=== PATIENT | female | born 1955 | race Caucasian/White ===

== ENCOUNTER 2023-08-16 06:09 | Inpatient (IN) | payer MEDICARE, SELFPAY ==
[2023-08-16] VITALS (68 sets, daily range): BP systolic 79–123; BP diastolic 47–70; PULSE 72–93; RESP 14–32; TEMP 36.6–37.6; O2SAT 96–100
--- NOTE | 2023-08-16 07:07 | W.PM.HP.N ---
Date of service: 08/16/23 Time of Service: 07:49 Assessment and Plan Assessment and plan (1) DKA (diabetic ketoacidosis): Status: Acute Assessment and plan: -Patient initially presented to [facility] with a pH of 7, and anion gap of 40, potassium 5.7, glucose 776 -Was given a total of 2 L of IV fluids and placed on insulin drip -Upon arrival to [facility] pH 7.16, potassium 4.4, anion gap 25, glucose 420 -Will continue DKA protocol with IV fluids, insulin, potassium replacement as needed all per protocol (2) Type I diabetes mellitus: Status: Acute Assessment and plan: - Patient usually on insulin pump -Will attempt to replace pump, if unable patient will use subcu insulin until she is 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 Patient initially presented to [facility] after experiencing altered mental status apparently losing consciousness on the toilet. She states that she may have dislodged her insulin pump, but was not completely aware of the situation given that she was on pain medications postoperatively for recent hip replacement. Upon presenting [facility] she was noted as having pH of about 7, an anion gap of 40, creatinine of 1.48, potassium of 5.7 without EKG changes, glucose of 776. Patient also appears to be tachycardic with heart rate in the 110s, she had dry mucous membranes and was given a total 2 L IV fluid. Additionally, she was started on DKA insulin protocol. At around 3 AM this morning, [facility] called overnight physician at [facility] for transfer given that [facility] did not have any ICU beds available. Upon arrival to [facility] pH is 7.16, CO2 25, lactic 3.8, sodium 132, anion gap of 25.2, creatinine of 1.6, glucose of 496 potassium of 4.4. Patient states that she is feeling significantly better, and understands that she will continue be treated for DKA. Review of Systems All systems reviewed & are unremarkable except as noted in HPI and below PFSH All Active Problems (Updated 08/16/23 @ 07:54 by Timmy Deal MD) Type I diabetes mellitus (Acute) DKA (diabetic ketoacidosis) (Acute) Social History Smoking risk assessment performed?: No Exam Narrative Exam Narrative: Well-appearing older female laying in bed in no acute distress, ANO x 4, heart regular rhythm, lungs clear to auscultation bilaterally, abdomen, soft, nontender, nondistended Results Labs 08/16/23 09:02 Time Spent Time spent with Patient: >75 minutes (60 minutes of critical care time managing patient in DKA on insulin drip with open anion gap) Time was spent: preparing to see the patient(eg.review tests), obtaining and/or reviewing separately otained hiistory, ordering medications,tests, procedures, referring, communicating with other health skin care instructor, indepentently interpreting results, counseling the patient and care coordination
[2023-08-16 07:31] LABS: BE (Venous) -20 mmol/L (-2-3); HCO3 (Venous) 9 mmol/L (23-28); O2 Sat (Venous) 72 %; TCO2 (Venous) 9 mmol/L (24-29); pCO2 (Venous) 25 mmHg (41-51); pO2 (Venous) 40 mmHg
[2023-08-16 07:34] LABS: pH (Venous) 7.16 (7.31-7.41)
[2023-08-16 07:43] LABS: Lactate 3.8 mmol/L (0.6-1.4)
[2023-08-16] MEDS: Acetaminophen 325 MG TAB PO ×2 (07:43→21:26)
[2023-08-16] MEDS: POTASSIUM CHLORIDE/0.9% NACL 1,000 ML 200 MEQ IV ×2 (07:45→13:42)
[2023-08-16 07:49] LABS: Anion Gap 25.2 mmol/L (3-11); BUN 35 mg/dL (7-18); CO2 9.8 mmol/L (21.0-32.0); CREATININE 1.6 mg/dL (0.55-1.02); Calcium 8.5 mg/dL (8.5-10.1); Chloride 97 mmol/L (98-107); Estimated GFR 35.13 (mL/min/1.73m2); Glucose 496 mg/dL (74-106); Magnesium 1.8 mg/dL (1.8-2.4); PHOSPHORUS 3.6 mg/dL (2.6-4.7); Potassium 4.4 mmol/L (3.5-5.1); Sodium 132 mmol/L (136-145)
--- NOTE | 2023-08-16 07:55 | INITIAL_ITS ---
Date of service: 08/16/23 Time of Service: 07:55 Care Management Initial Assmt Initial Assessment REASON FOR HOSPITALIZATION:: DKA PREVIOUS FUNCTIONAL STATUS/SOCIAL/FAMILY SUPPORTS:: Gail lives in [place] with her partner Seb Constantino. She has 3 sons. One lives in [place] and the other two reside in [place]. 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 She currently uses a walker as she recently had hip surgery, but is otherwise independent. CURRENT FUNCTIONAL STATUS:: Gail was lying in bed visiting with Seb when CM met with her. She appeared tired and admitted to feeling fatigued, however she was agreeable to conversation. Gail informed CM that she is finally starting to feel a little better. On admission this morning her blood sugar was almost 500. While CM was with Gail, it was rechecked and had come down to 163. She stated that it usually runs in the 120s. ADVANCE DIRECTIVES:: none Has patient been provided with info about the portal/API?: Yes Did the patient sign up for the portal?: No CODE STATUS:: Full Code INSURANCE COVERAGE / FINANCIAL ISSUES:: Medicare [employer] senior supplement CURRENT HOME/COMMUNITY SERVICES/EQUIPMENT:: Gail uses a walker at the moment due to recent hip surgery. At baseline she does not require any ambulatory aides. PRIMARY CARE PHYSICIAN:: Thuy Villagomez POTENTIAL DISCHARGE NEEDS:: Follow up with community providers and plan of care PATIENT/FAMILY EDUCATION NEEDS:: Review of discharge instructions, activity, medications, diet follow up plan, discuss Ask Me Three TRANSPORTATION:: via private vehicle PLAN:: Anticipate Gail will be discharged home with no new services. She will follow up with her PCP and plan of care and transport with a friend. CM will follow and continue to assess for discharge needs. PFSH All Active Problems Status post right hip replacement (Acute) Type I diabetes mellitus (Acute) DKA (diabetic ketoacidosis) (Acute) Social History Smoking risk assessment performed?: No
[2023-08-16] MEDS: INSULIN REGULAR IN 0.9 % NACL 100 UNIT/100 ML BAG 7.6 UNIT IV (08:27)
[2023-08-16] MEDS: Normal Saline Flush 10 ML SYR IVP ×2 (09:04→21:27)
[2023-08-16] MEDS: Enoxaparin 40 MG/0.4 ML SYR SC (09:06)
--- NOTE | 2023-08-16 09:15 | OCONE_ITS ---
Date of service: 08/16/23 Time of Service: 11:25 History of Present Illness History of Present Illness Chief Complaint: Recent R KAROLINA Narrative: Gail is a 68-year-old who underwent an anterior right hip replacement at [facility] on 03 August. She discharged home on same day. She had no acute issues. She was able to ambulate mobilize at home. However, she started not feeling well late last night. She was brought into the [facility] emergency department where she was diagnosed with hyperglycemia and diabetic ketoacidosis. Due to limitations and hospital stay she was transferred [facility] for further management. I was consulted for evaluation of her right hip and management for the recent right hip replacement. She denies any pain about the right hip. She denies numbness or tingling. She is able take a shower yesterday and has no issues with the wound or the dressing. Consults Consult date: 08/16/23 Requesting physician: Stefano Virk Consult Reason Recent R KAROLINA with DKA Assessment and Plan Assessment and plan (1) Status post right hip replacement: Status: Acute Assessment and plan: Gail is a 68-year-old who is status post right hip replacement at [facility]. She is here for diabetic ketoacidosis which seems to be improving. At this point, there is no need for intervention for her right hip. She may ambulate as tolerated on her own with a walker or other assistive device. She is weightbearing as tolerated. There are no positioning restrictions. She should maintain instructions and medications as given to her by Dr. Rodriguez of [facility]. There are no concerns at this time nor other need for interventions or observations about the right hip. Review of Systems All systems reviewed & are unremarkable except as noted in HPI and below PFSH All Active Problems Status post right hip replacement (Acute) Type I diabetes mellitus (Acute) DKA (diabetic ketoacidosis) (Acute) Social History Smoking risk assessment performed?: No Exam Narrative Exam Narrative: Resting in the chair. No acute distress. Alert and orient x 3. Evaluation of the right hip shows a clean dry and intact dressing over the anterior right hip. There is some mild ecchymosis seen about the thigh. The thigh is compressible. No pain with gentle internal and external rotation. Results Last Vital Signs Temp 36.9 C 08/16/23 06:53 Pulse Ox 99 08/16/23 06:53 Labs 08/16/23 09:02 Labs: Laboratory Results - last 24 hr 08/16/23 07:23 VBG pH 7.16 L* VBG pCO2 25 L VBG pO2 40 VBG HCO3 9 L VBG Total CO2 9 L VBG O2 Saturation 72 VBG Base Excess -20 L VBG Lactate 3.8 H* Sodium 132 L Potassium 4.4 Chloride 97 L Carbon Dioxide 9.8 L Anion Gap 25.2 H BUN 35 H Creatinine 1.6 H Est GFR (CKD-EPI 2020) 35.13 Glucose 496 H Calcium 8.5 Phosphorus 3.6 Magnesium 1.8
[2023-08-16 09:35] LABS: Anion Gap 19.1 mmol/L (3-11); BUN 32 mg/dL (7-18); CO2 14.9 mmol/L (21.0-32.0); CREATININE 1.5 mg/dL (0.55-1.02); Calcium 8.2 mg/dL (8.5-10.1); Chloride 97 mmol/L (98-107); Estimated GFR 37.96 (mL/min/1.73m2); Glucose 420 mg/dL (74-106); Potassium 4.3 mmol/L (3.5-5.1); Sodium 131 mmol/L (136-145)
[2023-08-16 12:31] LABS: Anion Gap 12.9 mmol/L (3-11); BUN 29 mg/dL (7-18); CO2 18.1 mmol/L (21.0-32.0); CREATININE 1.4 mg/dL (0.55-1.02); Calcium 8.2 mg/dL (8.5-10.1); Chloride 101 mmol/L (98-107); Estimated GFR 41.24 (mL/min/1.73m2); Glucose 305 mg/dL (74-106); Potassium 4.4 mmol/L (3.5-5.1); Sodium 132 mmol/L (136-145)
[2023-08-16] MEDS: Meloxicam 15 MG TAB PO (12:31)
[2023-08-16] MEDS: Pantoprazole 40 MG TABCR PO (12:31)
--- NOTE | 2023-08-16 14:38 | PHA.REVIEW2 ---
Pharmacy Admission Review Admission Clinical Review Admission Pharmacy Review: (Updated 08/16/23 @ 07:54 by Timmy Deal MD) Status post right hip replacement (Acute) Type I diabetes mellitus (Acute) DKA (diabetic ketoacidosis) (Acute) Resuscitation Status Full Code Height 5 ft 7 in Weight 76.4 kg Comments Comments/Follow Ups: Watch BP, BG, SCr, labs and for med changes (possible renal dose adjustments). Pharmacy Admission Review Renal Dosing Renal Dosing: BUN 29 mg/dL (7-18) H 08/16/23 12:05 Creatinine 1.4 mg/dL (0.55-1.02) H 08/16/23 12:05 Medications needing adjustments: Intervened (Crcl ~41.5 mL/min ) List of meds needing interventions: Oxycodone/APAP- recommended to administer 50-70% of the usual dose of oxycodone no more frequently than Q6H. Meloxicam- no dose adjustment necessary, however it is recommended to use the lowest effective dose for the shortest duration possible; avoid in patients at high risk for MEE. Will mention to provider. Anticoagulation Anticoagulation: Creatinine 1.4 mg/dL (0.55-1.02) H 08/16/23 12:05 DVT Prophylaxis: Reviewed Medications: Enoxaparin Therapeutic Anticoagulation: N/A Opiate Usage Evaluate Pain Scale/Pains Meds: Reviewed Scheduled Bowel Reg ordered if on Opiates?: No (has PRN meds ordered) Relevant Labs Relevant Labs: Sodium 132 mmol/L (136-145) L 08/16/23 12:05 Potassium 4.4 mmol/L (3.5-5.1) 08/16/23 12:05 Chloride 101 mmol/L (98-107) 08/16/23 12:05 Phosphorus 3.6 mg/dL (2.6-4.7) 08/16/23 07:23 Magnesium 1.8 mg/dL (1.8-2.4) 08/16/23 07:23 Electrolytes, C-Reactive P, ESR: Reviewed DM Control DM Control: Glucose 305 mg/dL (74-106) H 08/16/23 12:05 Finger Stick Blood Glucose 163 Finger Stick Blood Glucose 163 Finger Stick Blood Glucose 218 Finger Stick Blood Glucose 218 Finger Stick Blood Glucose 276 Finger Stick Blood Glucose 276 Finger Stick Blood Glucose 319 Finger Stick Blood Glucose 319 Finger Stick Blood Glucose 343 Finger Stick Blood Glucose 343 Finger Stick Blood Glucose 385 Finger Stick Blood Glucose 385 Finger Stick Blood Glucose 434 Finger Stick Blood Glucose 434 Finger Stick Blood Glucose 484 Finger Stick Blood Glucose 484 DM Control: Reviewed (BG level has improved since admission) Insulin Dosing, Diabetic Medication: insulin regular drip is currently ordered, provider is transitioning the patient to scheduled insulin glargine and sliding scale insulin aspart Cardiac Review BP, HR, EF%: Reviewed (BP has been low since admission, most recent level was 90/58. HR has been mostly within normal limits.) QTc Review QTc: N/A IV to PO Switch IV Medications: Reviewed Home Meds Home Med List reviewed: Reviewed Relevent Home Meds Not ordered & why?: atorvastatin; metformin- listed on home med list but noted the pt. has not taken since she has been on her insulin pump. Current Meds Current Medication Order Review: Reviewed Comments Comments/Follow Ups: Watch BP, BG, SCr, labs and for med changes (possible renal dose adjustments).
[2023-08-16] MEDS: DEXTROSE 5%-0.45% SALINE 1,000 ML 150 ML IV (14:46)
[2023-08-16 15:32] LABS: Anion Gap 12.1 mmol/L (3-11); BUN 26 mg/dL (7-18); CO2 18.9 mmol/L (21.0-32.0); CREATININE 1.2 mg/dL (0.55-1.02); Calcium 8.3 mg/dL (8.5-10.1); Chloride 105 mmol/L (98-107); Estimated GFR 49.61 (mL/min/1.73m2); Glucose 149 mg/dL (74-106); Potassium 4.2 mmol/L (3.5-5.1); Sodium 136 mmol/L (136-145)
[2023-08-16] MEDS: Insulin Glargine 300 UNITS/3 ML PEN 70 UNITS SC (16:17)
--- NOTE | 2023-08-16 16:55 | CHAPLAIN ---
I had a brief visit with Gail this afternoon as she was trying to take a nap. Introduced myself, explained my role and offered support.
[2023-08-16 18:53] LABS: BUN 23 mg/dL (7-18); CREATININE 1.1 mg/dL (0.55-1.02); Calcium 8.3 mg/dL (8.5-10.1); Chloride 105 mmol/L (98-107); Estimated GFR 55.07 (mL/min/1.73m2); Glucose 90 mg/dL (74-106); Potassium 3.9 mmol/L (3.5-5.1); Sodium 134 mmol/L (136-145)
[2023-08-16] MEDS: Docusate Sodium 100 MG CAP PO (21:26)
[2023-08-16] MEDS: Polyethylene Glycol 3350 17 GM PACKET PO (21:26)
[2023-08-16 21:27] LABS: Anion Gap 8.8 mmol/L (3-11); BUN 21 mg/dL (7-18); CO2 19.2 mmol/L (21.0-32.0); CREATININE 1.1 mg/dL (0.55-1.02); Chloride 105 mmol/L (98-107); Estimated GFR 55.07 (mL/min/1.73m2); Glucose 126 mg/dL (74-106); Potassium 4.2 mmol/L (3.5-5.1); Sodium 133 mmol/L (136-145)
[2023-08-17] VITALS (46 sets, daily range): BP systolic 81–144; BP diastolic 46–78; PULSE 64–82; RESP 13–28; TEMP 36.5–37.2; O2SAT 96–99
[2023-08-17 06:32] LABS: Abs Immature Grans 0.07 10^3/uL (0.0-0.06); Absolute Basophil Count 0.02 10^3/uL (0.0-0.2); Absolute Monocyte Count 1.22 10^3/uL (0.1-0.8); Basophils % 0.1; HCT 28.3 % (36.0-46.0); HGB 9.5 g/dL (11.2-15.7); Immature Grans % 0.5; Lymphocytes % 14.4; MCH 29.3 pg (27.0-33.0); MCHC 33.6 % (32.0-36.0); MCV 87 fL (80-95); MPV 10.5 fL (8.0-11.0); Platelet Count 242 10^3/uL (130-400); RBC 3.24 10^6/uL (3.93-5.22); RDW 12.3 % (11.7-14.6); RDW-SD 39.6 fL; WBC 15.27 10^3/uL (4.4-10.8)
[2023-08-17 06:35] LABS: Absolute Eosinophil Count 0.31 10^3/uL (0.0-0.7); Absolute Neutrophil Count 11.45 10^3/uL (1.2-6.7)
[2023-08-17 06:49] LABS: ALT 46 U/L (14-59); AST 82 U/L (15-37); Albumin 2.4 g/dL (3.4-5.0); Alkaline Phosphatase 118 U/L (46-116); Anion Gap 9.2 mmol/L (3-11); BUN 19 mg/dL (7-18); Bilirubin, Total 0.5 mg/dL (0.2-1.0); CO2 21.8 mmol/L (21.0-32.0); Calcium 8.6 mg/dL (8.5-10.1); Chloride 106 mmol/L (98-107); Estimated GFR 61.75 (mL/min/1.73m2); Glucose 112 mg/dL (74-106); Potassium 3.9 mmol/L (3.5-5.1); Sodium 137 mmol/L (136-145); Total Protein 5.8 g/dL (6.4-8.2)
[2023-08-17] MEDS: Normal Saline Flush 10 ML SYR IVP (08:11)
[2023-08-17] MEDS: Enoxaparin 40 MG/0.4 ML SYR SC (08:12)
[2023-08-17] MEDS: Acetaminophen 325 MG TAB PO ×2 (08:12→12:12)
[2023-08-17] MEDS: Insulin Glargine 300 UNITS/3 ML PEN 70 UNITS SC (08:42)
--- NOTE | 2023-08-17 09:21 | DSE_ITS ---
Date of service: 08/17/23 Time of Service: 09:22 DS: Diagnosis Discharge Diagnosis (1) DKA (diabetic ketoacidosis): Status: Acute Asessment and Plan: Patient initially presented from his hospital in [facility] was transferred due to lack of bed availability. She was on insulin drip for about 16 hours and was discontinued around 1500 on 08/16/2023 at which time she was given 7 units of subcu Lantus and placed on sliding scale insulin. Her blood sugar remained well-controlled as she was tolerating p.o. intake. At which time given the patient was back to her baseline of blood sugar levels it was determined that she was stable for the (2) Status post right hip replacement: Status: Acute (3) Type I diabetes mellitus: Status: Acute Discharge Plan Disposition Patient Disposition: Home Condition: Good Discharge Details Reason For Visit: [facility] Admit Date/Time: 08/16/23 06:09 Admit Provider: Stefano Virk Attending Provider: Stefano Virk Primary Care Provider: Thuy Villagomez Hospital Course Hospital Course: Him accountable patient initially presented for [facility] in [facility]. She was on insulin drip for a brief period of time while at [facility] and was ultimately transitioned back to her subcutaneous insulin regimen with complete resolution of her hypoglycemia, hyperkalemia, and anion gap. At which time, it was determined that the patient was stable for discharge Home Meds and New Rx's Prescriptions: Continued atorvastatin 20 mg tablet 20 mg PO DAILY novolog Patient Comments: 60 units subcutaneously via insulin pump daily. metformin 500 mg tablet 500 mg PO BID Patient Comments: Patient states she has not taken Metformin since she has been on her insulin pump. Discharge Instructions Instructions: Diabetic Ketoacidosis (DC) Activity:: Activity as Tolerated Equipment/Supplies:: No Equipment Needed Diet:: As Tolerated Discharge Orders Discharge Orders: Discharge Order (Routine); Ordered 08/17/23 Ordered By: Timmy Deal DS: Summary Time Spent with Patient providing and/or coordinating discharge services: Less than 30 minutes Status at Discharge Functional status at discharge: independent ambulation Overall status at discharge: patient is back to baseline Mental Status: mental status grossly normal Speech and Movement: speech and movement normal Mood: congruent mood Affect: normal affect Quality:SDOH Health Related Social Needs: No Data to Display Exam Narrative Exam Narrative: Well-appearing older female laying in bed in no acute distress, ANO x 4, heart regular rhythm, lungs clear to auscultation bilaterally, abdomen, soft, nontender, nondistended Psych Mental Status: mental status grossly normal Speech and Movement: speech and movement normal Mood: congruent mood Affect: normal affect DS: Data Vitals/I&O Vitals and I&O: Vital Signs Temperature 97.7 F 08/17/23 04:04 Temperature Source Temporal Artery Scan 08/17/23 04:04 Pulse 75 08/17/23 08:00 Pulse 79 08/17/23 08:00 Respiratory Rate 16 08/17/23 08:00 Respiratory Effort Normal, Non-Labored 08/17/23 07:53 Respiratory Depth Normal 08/17/23 07:53 Respiratory Pattern Normal 08/17/23 07:53 Blood Pressure 118/77 08/17/23 08:00 Blood Pressure Mean 89 08/17/23 08:00 Blood Pressure Position Supine 08/17/23 07:53 Pulse Oximetry 96 08/17/23 04:04 Oxygen Delivery Method Room Air 08/17/23 07:53 Oxygen Flow Rate 0 08/17/23 07:53 Pain Level 2 08/17/23 08:12 Intake & Output 08/16/23 08/17/23 08/17/23 17:59 05:59 17:59 Intake Total 1420.808 / 0208.284 8398 / 4080.808 450 / 450 Output Total 900 / 900 675 / 1575 800 / 800 Balance 520.808 / 962.996 4824 / 2505.808 -350 / -350 Weight 168 lb 6.931 oz 173 lb 4.533 oz Intake: IV 1070.808 / 3095.639 8307 / 2460.808 10 / 10 Oral 350 / 350 1270 / 1620 440 / 440 Output: Urine 900 / 900 675 / 1575 800 / 800 Other: Urine Color Yellow Pale Yellow Yellow Urine Appearance Clear Cloudy Clear Comment Coyle placed at 3 am due to AMS coyle patent coyle intact, patent, draining Stool Size Moderate Stool Characteristics Formed Hard Brown Data Completed and Pending Labs on day of discharge: Labs from last 24 hours 08/17/23 08/16/23 08/16/23 05:56 21:00 18:30 WBC 15.27 H RBC 3.24 L Hgb 9.5 L Hct 28.3 L MCV 87 MCH 29.3 MCHC 33.6 RDW 12.3 Plt Count 242 MPV 10.5 Immature Gran % 0.5 Neutrophils % 75.0 Lymphocytes % 14.4 Monocytes % 8.0 Eosinophils % 2.0 Basophils % 0.1 Nucleated RBC % 0.0 Absolute Neutrophils 11.45 H Absolute Lymphocytes 2.20 Absolute Monocytes 1.22 H Absolute Eosinophils 0.31 Absolute Basophils 0.02 Sodium 137 133 L 134 L Potassium 3.9 4.2 3.9 Chloride 106 105 105 Carbon Dioxide 21.8 19.2 L 19.0 L Anion Gap 9.2 8.8 10.0 BUN 19 H 21 H 23 H Creatinine 1.0 1.1 H 1.1 H Est GFR (CKD-EPI 2020) 61.75 55.07 55.07 Glucose 112 H 126 H 90 Calcium 8.6 8.0 L 8.3 L Total Bilirubin 0.5 AST 82 H ALT 46 Alkaline Phosphatase 118 H Total Protein 5.8 L Albumin 2.4 L 08/16/23 08/16/23 08/16/23 15:15 12:05 09:02 WBC RBC Hgb Hct MCV MCH MCHC RDW Plt Count MPV Immature Gran % Neutrophils % Lymphocytes % Monocytes % Eosinophils % Basophils % Nucleated RBC % Absolute Neutrophils Absolute Lymphocytes Absolute Monocytes Absolute Eosinophils Absolute Basophils Sodium 136 132 L 131 L Potassium 4.2 4.4 4.3 Chloride 105 101 97 L Carbon Dioxide 18.9 L 18.1 L 14.9 L Anion Gap 12.1 H 12.9 H 19.1 H BUN 26 H 29 H 32 H Creatinine 1.2 H 1.4 H 1.5 H Est GFR (CKD-EPI 2020) 49.61 41.24 37.96 Glucose 149 H 305 H 420 H Calcium 8.3 L 8.2 L 8.2 L Total Bilirubin AST ALT Alkaline Phosphatase Total Protein Albumin PFSH All Active Problems Status post right hip replacement (Acute) Type I diabetes mellitus (Acute) DKA (diabetic ketoacidosis) (Acute) Social History Smoking risk assessment performed?: No Housing: house Time Spent with Patient Time Spent with Patient: <45 minutes Time was spent: preparing to see the patient(eg.review tests), obtaining and/or reviewing separately otained hiistory, ordering medications,tests, procedures, referring, communicating with other health inpatient care manager rn, indepentently interpreting results, counseling the patient and care coordination
--- NOTE | 2023-08-17 09:56 | CMDISCH_ITS ---
Date of service: 08/17/23 Time of Service: 09:56 LACE Index Scoring Tool Questions: Length of Stay (in days): 1 Was the patient admitted via the E.D.?: Yes Comorbidities: Diabetes w/o Complication E.D. Visits: 1 Answers: Total Score: 6 Risk of Readmission: Low Risk Care Management Discharge Plan Reason for Hospitalization: DKA Discharge Plan: Gail will be discharged home with no new services. She will follow up with her PCP and plan of care and transport with a friend. Patient/Family Education Needs: Review of discharge instructions, activity, medications, diet follow up plan, discuss Ask Me Three [facility] Health Related Social Needs: No Data to Display
[2023-08-17] MEDS: Insulin Aspart 300 UNITS/3 ML PEN SC (12:06)
[2023-08-17] MEDS: Pantoprazole 40 MG TABCR PO (12:12)
[2023-08-17] MEDS: Meloxicam 15 MG TAB PO (12:13)
== END 2023-08-17 12:30 | disposition home or self-care (01) | DRG 639 ==
PROVIDERS: Family Medicine; Admitting Provider Internal Medicine; PCP Nurse Practitioner Family; Visit Provider Internal Medicine
DX: E10.10 Type 1 diabetes mellitus with ketoacidosis without coma (principal); Z96.41 Presence of insulin pump (external) (internal); Z96.641 Presence of right artificial hip joint
CPT/HCPCS: 00123; 36415; 80048; 80053; 82805; 99221; J1650; 83605; 83735; 84100; 85025; 99239; 99291; J1815